=== PATIENT | male | born 1960 | race Caucasian/White ===

== ENCOUNTER 2018-01-08 13:47 | Outpatient (CLI) | payer OTHER ==
--- NOTE | 2018-01-08 14:24 | RAD ---
LUMBAR SPINE THREE VIEWS: History: 57-year-old male history of disability evaluation. FINDINGS: Intradiscal cages are noted at L4-5 and L5-S1, generalized spondylosis. No acute fracture. IMPRESSION: Post-operative intradiscal cages at L4-5 and L5-S1 without other acute process. POS: C
== END 2018-01-08 13:48 | disposition home or self-care (01) ==
LOC: NAV RAD 13:47
PROVIDERS: ATTEND Family Medicine
DX: M51.36 Other intervertebral disc degeneration, lumbar region (principal); Z98.890 Other specified postprocedural states
CPT/HCPCS: 72100